=== PATIENT | female | born 1980 | race Caucasian/White ===

== ENCOUNTER 2017-08-07 21:51 | Emergency (ER) | payer BC, OTHER ==
[2017-08-07] MEDS: DEXAMETHASONE 10 MG/ML 1 ML INJ IV (22:03)
[2017-08-07] MEDS: DIPHENHYDRAMINE 50 MG INJ IV (22:03)
[2017-08-07] MEDS: SOD CHLORIDE 0.9% 1,000 ML IV (22:06)
[2017-08-07 22:14] LABS: URINE PH (Dip) POC 5.5 (5.0-8.5)
[2017-08-07 22:14] LABS: URINE BLOOD (Dip) POC Trace-intact (NEGATIVE); URINE GLUCOSE (Dip) POC Negative (NEGATIVE); URINE KETONES (Dip) POC Negative (NEGATIVE); URINE LEUKOCYTE EST (Dip) POC Negative (NEGATIVE); URINE NITRITE (Dip) POC Negative (NEGATIVE); URINE TOTAL PROTEIN POC Negative (NEGATIVE)
[2017-08-07] MEDS: IPRATROPIUM (NEB) 0.5 MG/2.5 ML AMP INH (22:15)
[2017-08-07] MEDS: ALBUTEROL 0.083% (NEB) 2.5 MG/3 ML AMP INH (22:15)
[2017-08-08] MEDS: SOD CHLORIDE 0.9% 1,000 ML IV (00:06)
[2017-08-08] MEDS: ALBUTEROL 0.083% (NEB) 2.5 MG/3 ML AMP HHN (00:10)
[2017-08-08] MEDS: hydrOXYzine HCL 25 MG TAB PO (00:26)
== END 2017-08-08 03:05 | disposition home or self-care (01) ==
LOC: FTE 08-08 03:05
DX: T78.3XXA Angioneurotic edema, initial encounter (principal); R40.2252 Coma scale, best verbal response, oriented, at arrival to emergency department; R40.2142 Coma scale, eyes open, spontaneous, at arrival to emergency department; R40.2362 Coma scale, best motor response, obeys commands, at arrival to emergency department; Z91.013 Allergy to seafood
CPT/HCPCS: 81003; 81025; 94640; 94664; 96374; 96375; 99284-25